=== PATIENT | male | born 1985 | race Caucasian/White ===

== ENCOUNTER 2019-06-18 17:50 | Emergency (ER) | payer BC ==
[~2019-06-18] VITALS: Ht 167 cm; Wt 119.0 kg
[2019-06-18] MEDS ORDERED: ESCI5TAB12 (18:39)
[2019-06-18] MEDS ORDERED: ONDA4TAB10 (18:39)
[2019-06-18 19:16] LABS: BASOPHILS % (AUTO) 0 % (0-10); EOSINOPHILS # (AUTO) 0.1 10^3/uL (0.0-0.3); EOSINOPHILS % (AUTO) 1 % (0-10); HEMATOCRIT 42 % (40-54); HEMOGLOBIN 15.2 G/DL (13.3-17.7); LYMPHOCYTES # (AUTO) 1.7 X 10^3 (1.0-4.0); LYMPHOCYTES % (AUTO) 32 % (12-44); MEAN CORPUSCULAR HEMOGLOBIN 33 PG (25-34); MEAN CORPUSCULAR HGB CONC 36 G/DL (32-36); MEAN CORPUSCULAR VOLUME 91 FL (80-99); MEAN PLATELET VOLUME 9.6 FL (7.4-10.4); MONOCYTES # (AUTO) 0.7 X 10^3 (0.0-1.0); MONOCYTES % (AUTO) 14 % (0-12); NEUTROPHILS # (AUTO) 2.9 X 10^3 (1.8-7.8); NEUTROPHILS % (AUTO) 53 % (42-75); PLATELET COUNT 310 10^3/uL (130-400); WHITE BLOOD COUNT 5.4 10^3/uL (4.3-11.0)
[2019-06-18 19:32] LABS: ALANINE AMINOTRANSFERASE 101 U/L (0-55); ALBUMIN 4.7 GM/DL (3.2-4.5); ALKALINE PHOSPHATASE 55 U/L (40-136); AMYLASE 51 U/L (25-125); BILIRUBIN,TOTAL 0.9 MG/DL (0.1-1.0); CALCIUM 9.4 MG/DL (8.5-10.1); CARBON DIOXIDE 23 MMOL/L (21-32); CHLORIDE 103 MMOL/L (98-107); GLUCOSE 95 MG/DL (70-105); POTASSIUM 3.3 MMOL/L (3.6-5.0); SODIUM 141 MMOL/L (135-145); TOTAL PROTEIN 7.8 GM/DL (6.4-8.2)
[2019-06-18] MEDS ORDERED: CATHETER FLUSH 10 ML SYR IV PRN (19:45)
[2019-06-18] MEDS ORDERED: IOHEXOL 350 MG/ML 100 ML (OMNIPAQUE 350) VIAL IV ONE (19:45)
[2019-06-18] MEDS ORDERED: NS 100 ML (IVPB) BAG IV ONE (19:45)
[2019-06-18] MEDS ORDERED: HOLD METFORMIN - RECEIVED CONTRAST 20 ML VIAL IV SCH (19:45)
--- NOTE | 2019-06-18 19:48 | Diagnostic Imaging Report ---
PROCEDURE: CT abdomen and pelvis with contrast. TECHNIQUE: Multiple contiguous axial images were obtained through the abdomen and pelvis after administration of intravenous contrast. Auto Exposure Controls were utilized during the CT exam to meet ALARA standards for radiation dose reduction. INDICATION: Epigastric pain, vomiting and diarrhea. FINDINGS: Lung bases are clear. Heart is unremarkable. Gallbladder is present. Pancreas appears normal. Spleen is not enlarged. Kidneys and adrenals appear normal. Small bowel is not dilated. Colon is unremarkable. There is no intraperitoneal free air or free fluid. Urinary bladder and prostate appear normal. IMPRESSION: No acute abnormality is seen in the abdomen or pelvis. Dictated by: Dictated on workstation # [id number]
[2019-06-18] MEDS ORDERED: DEXAMETHASONE 10 MG/ML (DECADRON) 1 ML VIAL IM ONE (20:00)
[2019-06-18 20:03] LABS: BILIRUBIN,URINE NEGATIVE (NEGATIVE); CLARITY,URINE CLEAR; COLOR,URINE YELLOW; GLUCOSE, URINE (UA) NEGATIVE (NEGATIVE); KETONES,URINE 1+ (NEGATIVE); LEUKOCYTE ESTERASE ,URINE NEGATIVE (NEGATIVE); NITRITE,URINE NEGATIVE (NEGATIVE); PROTEIN,URINE NEGATIVE (NEGATIVE)
[2019-06-18 20:17] LABS: BACTERIA,URINE NEGATIVE /HPF; RBC,URINE RARE /HPF
[2019-06-18 20:30] LABS: BUN/CREATININE RATIO 9; GFR ESTIMATED > 60; LIPASE 22 U/L (8-78)
[2019-06-18] MEDS ORDERED: NS IV 1000 ML 1,000 ML IV SCH (20:30)
[2019-06-18] MEDS ORDERED: AZIT250T12 PO (20:34)
--- NOTE | 2019-06-18 20:34 | ED EENT ---
History of Present Illness General Chief Complaint: Oral/Throat Problems Stated Complaint: MED COMPLICATION, THROAT TIGHT, HARD TO SWOLLOW Nursing Triage Note: pt presents to ed with complaints of throat discomfort and swelling starting today. Source: patient Exam Limitations: no limitations History of Present Illness Date Seen by Provider: Jun 18, 2019 Time Seen by Provider: 18:50 Initial Comments 33 year old male who presents to the ER with complaints of throat pain and swelling that started today. He reports that he was treated last week with a Z-p ak due to strep and it improved but started hurting today. He reports that he has also had RUQ abdominal pain for awhile and has started work up for possible gallbladder with Dr. Robert office but had worsening pain today. Denies fevers, nausea, vomiting, diarrhea. Timing/Duration: this morning Location: throat Associated Symptoms: sore throat Allergies and Home Medications Allergies Coded Allergies: amoxicillin (Verified Allergy, Unknown, 06/18/19) Home Medications Clindamycin HCl 300 Mg Capsule, 300 MG PO Q8H Prescribed by: DIANNE ZAPATA on 06/18/192048 Patient Home Medication List Home Medication List Reviewed: Yes Review of Systems Review of Systems Constitutional: see HPI; No chills, No fever Throat: see HPI, pain, painful swallowing Gastrointestinal: RUQ, see HPI All Other Systems Reviewed Negative Unless Noted: Yes Past Snmpogx-Drllsx-Pwdnnb Hx Past Med/Social Hx: Reviewed Nursing Past Med/Soc Hx Patient Social History Alcohol Use: Occasionally Uses Recreational Drug Use: No Smoking Status: Never a Smoker Recent Foreign Travel: No Contact w/Someone Who Travel: No Recent Infectious Disease Expo: No Recent Hopitalizations: No Physical Abuse: No Sexual Abuse: No Mistreated: No Fear: No Seasonal Allergies Seasonal Allergies: No Past Medical History Surgeries: No Respiratory: No Cardiac: No Neurological: No Genitourinary: No Gastrointestinal: No Musculoskeletal: No Endocrine: No Cancer: No Psychosocial: Yes Anxiety Integumentary: No Blood Disorders: No Adverse Reaction/Blood Tranf: No Family Medical History Reviewed Nursing Family Hx Physical Exam Vital Signs Vital Signs - First Documented 06/18/19 18:32 Temp 36.9 Pulse 79 Resp 16 B/P (MAP) 149/93 (111) Pulse Ox 98 Height, Weight, BMI Height: '" Weight: lbs. oz. kg; 42.00 BMI Method: General Appearance: WD/WN, no apparent distress Ears: bilateral ear auricle normal, bilateral ear TM normal Mouth/Throat: tongue swollen, tonsillar exudate, other (pharyngeal erythema) Cardiovascular: normal peripheral pulses, regular rate, rhythm, no edema, no gallop, no JVD, no murmur Respiratory: chest non-tender, lungs clear, normal breath sounds, no respiratory distress, no accessory muscle use Gastrointestinal: normal bowel sounds, soft, no organomegaly, no pulsatile mass, tenderness (minimal right upper quadrant tenderness. ) Neurologic/Psychiatric: alert, normal mood/affect, oriented x 3 Skin: normal color, warm/dry Progress/Results/Core Measures Results/Orders Lab Results My Orders Medications Given in ED Vital Signs/I&O Blood Pressure Mean: 111 POS Progress Progress Note : Time: 20:32 Progress Note I have seen and evaluated the patient. I have informed him of his laboratory findings and imaging studies. He agrees with plan of care, plans for discharge, return precautions were given. Departure Impression Primary Impression: Streptococcal tonsillitis Additional Impression: Right upper quadrant abdominal pain Disposition: 01 HOME, SELF-CARE Condition: Stable/Unchanged Departure-Patient Inst. Decision time for Depature: 20:32 Referrals: BRISEYDA WILKERSON MD (PCP/Family) Primary Care Physician Patient Instructions: Acute Abdomen (Belly Pain), Adult (DC), Strep Throat (DC) Add. Discharge Instructions: Take medication as directed. You may use Tylenol and Motrin as needed for pain relief. Follow-up with Dr. Wilkerson's office to further evaluate the function of your gallbladder. Return back to the emergency room for worsening symptoms or concerns as needed. All discharge instructions reviewed with patient and/or family. Voiced understanding. Scripts Clindamycin HCl (Clindamycin HCl) 300 Mg Capsule 300 MG PO Q8H for 7 Days, #21 CAP Prov: DIANNE ZAPATA 06/18/19 DIANNE ZAPATA Jun 18, 2019 20:34 POS
[2019-06-18] MEDS ORDERED: CLIN300C11 PO (20:49)
[2019-06-18 20:59] VITALS: BP 149/93
[2019-06-18] MEDS ORDERED: CLINDAMYCIN 150 MG (CLEOCIN) CAP PO ONE (21:00)
[2019-06-19] MEDS ORDERED: AZITHROMYCIN 250 MG TAB (ZITHROMAX) PO SCH (09:00)
--- OUTSIDE RECORDS SUMMARY | 2019-07-15 01:05 | XMS REPORT | Continuity of Care Document ---
Demographics Preferred Language Unknown Marital Status Unknown Druze Affiliation Unknown Race Unknown Ethnic Group Unknown Author Organization Unknown Address Unknown Phone Unavailable Allergies Active Description Code Type Severity Reaction Onset Reported/Identified Relationship to Patient Clinical Status Yes amoxicillin [id number] Drug Aller gy Unknown N/A 06/18/2019 Medications There is no data. Problems Date Dx Coded Attending Type Code Diagnosis Diagnosed By 06/18/2019 DIANNE ZAPATA Ot F41.9 ANXIETY DISORDER, UNSPECIFIED 06/18/2019 BERNLOY CANTUIS Ot J03.00 ACUTE STREPTOCOCCAL TONSILLITIS, UNSPECI 06/18/2019 LOY ZAPATAIS Ot R10.11 RIGHT UPPER QUADRANT PAIN 06/18/2019 LOY ZAPATAIS Ot Z88.0 ALLERGY STATUS TO PENICILLIN 06/24/2019 MELANY ALMAZAN LABELING STRATEGIST Ot K76.0 FATTY (CHANGE OF) LIVER, NOT ELSEWHERE C 06/24/2019 MELANY ALMAZAN LABELING STRATEGIST Ot R19.7 DIARRHEA, UNSPECIFIED 06/25/2019 DIANNE ZAPATA Ot F41.9 ANXIETY DISORDER, UNSPECIFIED 06/25/2019 BERNPEPE, DIANNE Ot J03.00 ACUTE STREPTOCOCCAL TONSILLITIS, UNSPECI 06/25/2019 DIANNE ZAPATA Ot R10.11 RIGHT UPPER QUADRANT PAIN 06/25/2019 LOY ZAPATAIS Ot Z88.0 ALLERGY STATUS TO PENICILLIN 07/10/2019 MELANY ALMAZAN LABELING STRATEGIST Ot K21.9 GASTRO-ESOPHAGEAL REFLUX DISEASE WITHOUT Procedures There is no data. Results Test Result Range Streptococcus pyogenes antigen detection - 06/18/19 19:00 Streptococcus pyogenes antigen detection NEGATIVE NEGATIVE Bacterial throat culture - 06/18/19 19:0 0 Bacterial throat culture NBS NR Complete blood count (CBC) with automate d white blood cell (WBC) differential - 06/18/19 19:07 Blood leukocytes automated count (number/volume) 5.4 10*3/uL 4.3-11.0 Blood erythrocytes automated count (number/volume) 4.65 10*6/uL 4.35-5.85 Venous blood hemoglobin measurement (mass/volume) 15.2 g/dL 13.3-17.7 Blood hematocrit (volume fraction) 42 % 40-54 Automated erythrocyte mean corpuscular volume 91 [ foz_us] 80-99 Automated erythrocyte mean corpuscular h emoglobin (mass per erythrocyte) 33 pg 25-34 Automated erythrocyte mean corpuscular h emoglobin concentration measurement (mass/volume) 36 g/dL 32-36 Automated erythrocyte distribution width ratio 12. 0 % 10.0- 14.5 Automated blood platelet count (count/volume) 310 10*3/uL 130-400 Automated blood platelet mean volume measurement 9.6 [foz_us] 7.4-10.4 Automated blood neutrophils/100 leukocytes 53 % 42-75 Automated blood lymphocytes/100 leukocytes 32 % 12-44 Blood monocytes/100 leukocytes 14 % 0-12 Automated blood eosinophils/100 leukocytes 1 % 0-10 Automated blood basophils/100 leukocytes 0 % 0-10 Blood neutrophils automated count (number/volume) 2.9 10*3 1.8-7.8 Blood lymphocytes automated count (number/volume) 1.7 10*3 1.0-4.0 Blood monocytes automated count (number/volume) 0. 7 10*3 0.0-1.0 Automated eosinophil count 0.1 10*3/uL 0 .0-0.3 Automated blood basophil count (count/volume) 0.0 10*3/uL 0.0-0.1 Comprehensive metabolic panel - 06/18/19 19:07 Serum or plasma sodium measurement (moles/volume) 141 mmol/L 135-145 Serum or plasma potassium measurement (moles/volume) 3.3 mmol/L 3.6-5.0 Serum or plasma chloride measurement (moles/volume) 103 mmol/L 98-107 Carbon dioxide 23 mmol/L 21-32 Serum or plasma anion gap determination (moles/volume) 15 mmol/L 5-14 Serum or plasma urea nitrogen measurement (mass/volume ) 9 mg/dL 7-18 Serum or plasma creatinine measurement (mass/volume) 1.00 mg/dL 0.60-1.30 Serum or plasma urea nitrogen/creatinine mass ratio 9 NRG Serum or plasma creatinine measurement w ith calculation of estimated glomerular filtration rate > NRG Serum or plasma glucose measurement (mass/volume) 95 mg/dL 70-105 Serum or plasma calcium measurement (mass/volume) 9.4 mg/dL 8.5-10.1 Serum or plasma total bilirubin measurement (mass/volu me) 0.9 mg/dL 0.1-1.0 Serum or plasma alkaline phosphatase zohreh surement (enzymatic activity/volume) 55 U/L 40-136 Serum or plasma aspartate aminotransfera se measurement (enzymatic activity/volume) 43 U/L 5-34 Serum or plasma alanine aminotransferase measurement (enzymatic activity/volume) 101 U/L 0-55 Serum or plasma protein measurement (mass/volume) 7.8 g/dL 6.4-8.2 Serum or plasma albumin measurement (mass/volume) 4.7 g/dL 3.2-4.5 Serum or plasma amylase measurement (enz ymatic activity/volume) - 06/18/19 19:07 Serum or plasma amylase measurement (enzymatic activit y/volume) 51 U/L 25-125 Lipase - 06/18/19 19:07 Lipase 22 U/L 8-78 Complete urinalysis with reflex to cultu re - 06/18/19 19:50 Urine color determination YELLOW NRG Urine clarity determination CLEAR NR G Urine pH measurement by test strip 6.0 5-9 Specific gravity of urine by test strip 1.010 1.016-1.022 Urine protein assay by test strip, semi-quantitative NEGATIVE NEGATIVE Urine glucose detection by automated test strip NE GATIVE NEGATIVE Erythrocytes detection in urine sediment by light micr oscopy TRACE-I NEGATIVE Urine ketones detection by automated test strip 1+ NEGATIVE Urine nitrite detection by test strip NEGATIVE NEGATIVE Urine total bilirubin detection by test strip NEGA TIVE NEGATIVE Urine urobilinogen measurement by automated test strip (mass/volume) 0.2 mg/dL < = 1.0 Urine leukocyte esterase detection by dipstick NEG ATIVE NEGATIVE Automated urine sediment erythrocyte cou nt by microscopy (number/high power field) RARE NRG Automated urine sediment leukocyte count by microscopy (number/high power field) NONE NRG Bacteria detection in urine sediment by light microsco py NEGATIVE NRG Crystals detection in urine sediment by light microsco py NONE NRG Casts detection in urine sediment by light microscopy NONE NRG Mucus detection in urine sediment by light microscopy NEGATIVE NRG Complete urinalysis with reflex to culture NO NRG OCCULT BLOOD STOOL - 07/09/19 15:00 Stool gastrointestinal hemoglobin detection NEGATI VE NEGATIVE C DIFFICILE AG + TOXIN A/B. - 07/09/19 1 5:00 RESULTS NEGATIVE FOR ANTIGEN AND TOXIN A/B NRG [id number] - 07/09/19 15:00 Stool bacteria identification by culture - 07/09/19 15:00 Stool bacteria identification by culture N2 NRG Encounters ACCT No. Visit Date/Time Discharge Status Pt. Type Provider Facility Loc./Unit Complaint [id number] 06/16/2019 15:50:20 06/16/2019 23:59:5 9 CLS Outpatient [id number] 07/09/2019 15:35:00 23:59:59 CLS Outpatient MAURICIO SHARP APRN [facility] LAB DIARRHEA [id number] 07/09/2019 09:37:00 23:59:59 CLS Outpatient MELANY ALMAZAN [facility] CARD RUQ PAIN [id number] 06/22/2019 06:49:00 23:59:59 CLS Outpatient MELANY ALMAZAN [facility] RAD ABD PAIN,DIARRH EA [id number] 06/18/2019 17:53:00 21:01:00 DIS Emergency DIANNE ZAPATA [facility] ER MED COMPLICATION, THROA T TIGHT, HARD TO SWOLLOW
[2019-07-16] MEDS ORDERED: OMEP-280 PO (11:33)
== END 2019-06-18 21:01 | disposition home or self-care (01) ==
LOC: EDUNIT# 17:50 → ER 17:53
DX: J03.00 Acute streptococcal tonsillitis, unspecified (principal); R10.11 Right upper quadrant pain; F41.9 Anxiety disorder, unspecified; Z88.0 Allergy status to penicillin
CPT/HCPCS: 36415; 74177; 80053; 81000; 82150; 83690; 85025; 87430; 96374

== ENCOUNTER → 2019-06-22 | Outpatient (CLI) | payer BC ==
[~2019-06-22] MED LIST: ACHD5005 PO; AZIT250T12 PO; CLIN300C11 PO; DOCU-143 PO; ESCI5TAB12; FAMO-119 PO; FLUC150T2 PO; NYST1000 PO; OMEP-280 PO; ONDA4TAB10; SUCR1TAB PO
--- NOTE | 2019-06-22 09:18 | Diagnostic Imaging Report ---
PROCEDURE: US Gallbladder. TECHNIQUE: Multiple real-time grayscale images were obtained over the right upper quadrant in various projections. INDICATION: Abdominal pain and diarrhea. FINDINGS: There is increased echogenicity throughout the liver indicating steatosis. Gallbladder has a normal appearance without evidence of intraluminal filling defect. Common bile duct and pancreas are largely obscured by overlying fatty liver and bowel. No right renal, abdominal aortic or inferior vena caval abnormality is identified and there is no evidence of ascites. IMPRESSION: Hepatic steatosis without acute abnormality seen in the right upper quadrant. Dictated by: Dictated on workstation # [id number]
== END ==
LOC: RAD 06:49
PROVIDERS: ATTEND Nurse Practitioner Family
DX: K76.0 Fatty (change of) liver, not elsewhere classified (principal); R19.7 Diarrhea, unspecified
CPT/HCPCS: 76705

== ENCOUNTER 2019-07-09 15:35 | Outpatient (RCR) | payer BC ==
[~2019-07-09 15:35] MED LIST changes: -CATHETER FLUSH 10 ML SYR IV PRN; +ONDA-105; -ONDA4TAB10
[2019-07-16] MEDS ORDERED: FLUC150T2 PO (11:33)
[2019-07-16] MEDS ORDERED: SUCR1TAB PO (11:33)
[2019-07-16] MEDS ORDERED: FAMO-119 PO (11:33)
[2019-07-16] MEDS ORDERED: OMEP20CA18 PO (11:33)
[2019-07-16] MEDS ORDERED: NYST1000 PO (11:33)
[2019-07-24] MEDS ORDERED: DOCU-143 PO (10:24)
[2019-07-24] MEDS ORDERED: ACHD5005 PO (10:24)
[2019-08-26] MEDS ORDERED: PANT40TA2 PO (13:37)
[2019-09-01] MEDS ORDERED: SUCR1TAB36 PO (14:42)
== END 2019-10-07 | disposition home or self-care (01) ==
LOC: LAB 15:35
PROVIDERS: ATTEND Nurse Practitioner Family
DX: R19.7 Diarrhea, unspecified (principal)
CPT/HCPCS: 82274; 87015; 87045; 87046; 87324; 87328; 87329; 87449; 87899

== ENCOUNTER → 2019-07-09 | Outpatient (CLI) | payer BC ==
[~2019-07-09] MED LIST changes: -ACHD5005 PO; +CATHETER FLUSH 10 ML SYR IV PRN; -DOCU-143 PO; -FAMO-119 PO; -FLUC150T2 PO; -NYST1000 PO; -OMEP-280 PO; -SUCR1TAB PO
--- NOTE | 2019-07-09 13:41 | Diagnostic Imaging Report ---
INDICATION: Right upper quadrant pain. TECHNIQUE: Patient was given 5.3 mCi technetium 99m Choletec intravenously and imaging over the abdomen was performed. At 30 minutes, patient ingested 8 ounces of Ensure and a gallbladder ejection fraction was calculated. FINDINGS: There is homogeneous uptake of activity by the liver. Prompt excretion of activity into the common duct and gallbladder is noted. There is normal passage of activity into the small bowel. There is also activity extending into the stomach, consistent with bile reflux. Gallbladder ejection fraction is abnormally low at 12%. Normal values are 33% or greater. IMPRESSION: 1. Patent cystic duct and common bile duct. 2. Abnormally low gallbladder ejection fraction of 12%. 3. Bile reflux into the stomach. Dictated by: Dictated on workstation # [id number]
== END ==
LOC: CARD 09:37
PROVIDERS: ATTEND Nurse Practitioner Family
DX: K21.9 Gastro-esophageal reflux disease without esophagitis (principal)
CPT/HCPCS: 78227

== ENCOUNTER 2019-07-16 05:34 | Outpatient (CLI) | payer BC ==
[~2019-07-16] VITALS: Ht 167.7 cm; Wt 110.9 kg
[~2019-07-16 05:34] MED LIST changes: -ONDA-105; +ONDA4TAB10
[2019-07-16] MEDS ORDERED: SUCR1TAB PO (11:33)
[2019-07-16] MEDS ORDERED: FLUC150T2 PO (11:33)
[2019-07-16] MEDS ORDERED: NYST1000 PO (11:33)
[2019-07-16] MEDS ORDERED: FAMO-119 PO (11:33)
[2019-07-16] MEDS ORDERED: OMEP20CA13 PO (11:33)
== END 2019-07-16 11:46 | disposition home or self-care (01) ==
LOC: PREOP 05:34
PROVIDERS: ATTEND Surgery
DX: Z01.818 Encounter for other preprocedural examination (principal)

== ENCOUNTER 2019-07-24 07:20 | Day surgery (SDC) | payer BC ==
[~2019-07-24] VITALS: Ht 66 cm; Wt 110.9 kg
[2019-07-24] VITALS (11 sets, daily range): BP systolic 113–166; BP diastolic 56–108
[~2019-07-24 07:20] MED LIST changes: +FAMO-119 PO; +FLUC150T2 PO; +NYST1000 PO; +OMEP-280 PO; +SUCR1TAB PO
[2019-07-24] MEDS ORDERED: LACTATED RINGERS 1,000 ML IV PRN (08:00)
[2019-07-24] MEDS ORDERED: ceFAZolin 2 GM/50 ML NS 50 ML IV ONE (08:00)
[2019-07-24] MEDS: LACTATED RINGERS 1,000 ML IV PRN ×2 (08:22→09:55)
--- NOTE | 2019-07-24 08:25 | Progress Note-Pre Operative ---
Pre-Operative Progress Note H&P Reviewed The H&P was reviewed, patient examined and no changes noted. Date Seen by Provider: Jul 24, 2019 Time Seen by Provider: 08:23 Date H&P Reviewed: Jul 24, 2019 Time H&P Reviewed: 08:23 Pre-Operative Diagnosis: epigastric abd pain, biliary dyskinesia MIKE ROBERTS DO Jul 24, 2019 08:25
[2019-07-24] MEDS ORDERED: BUP/EPI 0.5% 1:200,000 (SENSORCAINE) 30 ML VIAL ONE (08:27)
[2019-07-24] MEDS ORDERED: IOPAMIDOL 61% 30 ML (ISOVUE 300) VIAL IV ONE (08:28)
[2019-07-24] MEDS ORDERED: MIDAZOLAM 2 MG/2 ML (VERSED) VIAL ONE ×2 (08:33→09:00)
[2019-07-24] MEDS ORDERED: MIDAZOLAM 2 MG/2 ML (VERSED) VIAL IVP ONE (08:45)
[2019-07-24] MEDS ORDERED: fentaNYL INJECTION 100 MCG/2 ML AMP ONE (08:59)
[2019-07-24] MEDS ORDERED: SUCCINYLCHOLINE INJ 100 MG/5 ML SYR ONE (09:47)
[2019-07-24] MEDS ORDERED: SEVOFLURANE (ULTANE) 15 ML INHAL SOLN ONE ×6 (09:47→10:29)
[2019-07-24] MEDS ORDERED: LIDOCAINE PF 2% 5 ML (XYLOCAINE) VIAL ONE (09:47)
[2019-07-24] MEDS ORDERED: proPOfol 200 MG/20 ML (DIPRIVAN) VIAL IV ONE (09:47)
[2019-07-24] MEDS ORDERED: ONDANSETRON 4 MG/2 ML (SDV) Z0FRAN ONE (09:47)
[2019-07-24] MEDS ORDERED: ROCURONIUM 10 MG/ML 5 ML SYRINGE IV ONE (09:47)
[2019-07-24] MEDS ORDERED: morphine INJ 10 MG/ML 1ML (SYR OR VIAL) ONE (09:48)
[2019-07-24] MEDS ORDERED: GLYCOPYRROLATE 0.2 MG/ML (ROBINUL) 2 ML VIAL ONE (10:11)
[2019-07-24] MEDS ORDERED: ACHD5005 PO (10:24)
[2019-07-24] MEDS ORDERED: DOCU-143 PO (10:24)
--- NOTE | 2019-07-24 10:25 | Discharge Inst-Simple/Standard ---
Discharge Inst-Standard Discharge Medications New, Converted or Re-Newed RX: RX on Chart Patient Instructions/Follow Up Plan of Care/Instructions/FU: 2 weeks Shalonda Activity as Tolerated: No Discharge Diet: Regular Diet Other Inst to Patient Follow up Appt: Make appointment for 2 weeks. Instructions: No lifting greater than 10 pounds. No strenuous activity. May shower in 24 hours, no tub bath or soaking. Use incentive spirometer at home as directed. No Smoking Skin/Wound Care: You have special glue over incisions it will fall off on its own. Symptoms to Report: Appetite Changes, Extremity Discoloration, Numbness/Tingling, Swelling Increased, Bleeding Excessive, Eyesight Changes, Pain Increased, Urine Color Change, Constipation(Persistent), Fever over 101 degree F, Pain/Pressure in chest, Urinating Difficulty, Cough Up/Vomit Blood, Heart Beat Irreg/Pounding, Pain/Pressure in jaw, Vaginal Bleeding Increase, Cramps in feet or legs, Lightheadedness, Pain/Pressure in shoulder, Diarrhea(Persistent), Memory Changes Suddenly, Questions/Concerns, Weight gain consecutive days, Dizziness/Fainting, Nausea/Vomiting, Shortness of Breath, Weight gain over 2 pounds. If eyes or skin turn yellow notify physician. If questions or concerns contact your physician Or seek help at emergency department. MIKE ROBERTS DO Jul 24, 2019 10:25
[2019-07-24] MEDS ORDERED: HYDROmorphone 2 MG/ML VIAL (DILAUDID) ONE (10:33)
[2019-07-24] MEDS ORDERED: ONDANSETRON 4 MG/2 ML (SDV) Z0FRAN IVP PRN (10:45)
[2019-07-24] MEDS ORDERED: MEPERIDINE (DEMEROL) INJ 50 MG/ML IVP ONE (10:45)
[2019-07-24] MEDS ORDERED: morphine INJ 10 MG/ML 1ML (SYR OR VIAL) IVP ONE (10:45)
[2019-07-24] MEDS ORDERED: HYDROmorphone 2 MG/ML VIAL (DILAUDID) IV ONE (10:45)
[2019-07-24] MEDS ORDERED: fentaNYL INJECTION 100 MCG/2 ML AMP IVP ONE (10:45)
--- NOTE | 2019-07-24 11:10 | Diagnostic Imaging Report ---
INDICATION: Fluoroscopy during intraoperative cholangiogram. Patient has biliary dyskinesia. Fluoroscopy was provided in the OR during intraoperative cholangiogram. 7 seconds of fluoroscopic time was utilized. Images demonstrate contrast being injected via the cystic duct remnant. Intrahepatic and extrahepatic bile ducts are normal caliber. No filling defects are seen to suggest retained stone. There is contrast flowing into the duodenum. IMPRESSION: Fluoroscopy during intraoperative cholangiogram. Dictated by: Dictated on workstation # [id number]
[2019-07-24] MEDS ORDERED: HYDROcodone/APAP 5 MG/325 MG (LORTAB) TAB ONE (11:57)
[2019-07-24] MEDS ORDERED: HYDROcodone/APAP 5 MG/325 MG (LORTAB) TAB PO ONE (12:00)
--- NOTE | 2019-07-24 13:18 | Anesthesia-General Post-Op ---
General Patient Condition Mental Status/LOC: Same as Preop Cardiovascular: Satisfactory Nausea/Vomiting: Absent Respiratory: Satisfactory Pain: Controlled Complications: Absent Post Op Complications Complications None Follow Up Care/Instructions Patient Instructions None needed. Anesthesia/Patient Condition Patient Condition Patient is doing well, no complaints, stable vital signs, no apparent adverse anesthesia problems. No complications reported per nursing. JUAN QUIROGA CRNA Jul 24, 2019 13:18
--- NOTE | 2019-07-24 14:53 | OPERATIVE REPORT ---
DATE OF SERVICE: 07/24/2019 PREOPERATIVE DIAGNOSES: Biliary dyskinesia, epigastric abdominal pain. POSTOPERATIVE DIAGNOSES: Biliary dyskinesia, epigastric abdominal pain. PROCEDURE PERFORMED: Laparoscopic cholecystectomy with intraoperative cholangiogram. SURGEON: Mike Liz DO SEWER LINE PHOTO INSPECTOR: Dr. Garcia, assisted in retraction, dissection and closure. ANESTHESIA: General. ESTIMATED BLOOD LOSS: Minimal. COMPLICATIONS: None. INDICATIONS: The patient is a 33-year-old male with epigastric abdominal pain, biliary dyskinesia consistent with HIDA scan. He understands risks and benefits of procedure and wished to proceed with procedure. Consent was signed in the chart. DESCRIPTION OF PROCEDURE: The patient was taken to the operating suite, prepped and draped in sterile fashion. Timeout was performed. A midline incision just above the umbilicus was made for 12 mm trocar site. The cautery was used to dissect down to the fascia, which was then scored, grasped and elevated. The abdomen was then entered. An 0 Vicryl was placed in the [id number] fashion for closure at the end of the case. The balloon was then inserted and pneumoperitoneum was achieved. Under direct visualization of the laparoscope, a 5 mm trocar was placed in subxiphoid region and two 5 mm trocars were placed in the right upper quadrant. Gallbladder was grasped, elevated. The cystic duct and cystic artery were then dissected out. Clips were placed on the proximal and distal portion of the cystic artery and the distal portion of the cystic duct. The duct was then partially transected. Arrow catheter was inserted and cholangiogram was performed. There were no filling defects. Contrast made its way into the duodenum without difficulty. Catheter was then removed. Clips were placed on the proximal portion of the cystic duct and the duct and the artery were then transected. Hook cautery was used to dissect the gallbladder from the gallbladder fossa achieving hemostasis. Once removed, it was placed in an Endobag and removed through the 12 mm trocar site. Abdomen was irrigated with copious amounts of irrigation and suction. The abdomen was then desufflated, the trocars were removed. The 0 Vicryl that was placed earlier was then tied closing the fascial defect. The skin was then closed using 4-0 Monocryl in a subcuticular fashion. The abdomen was washed and dried and Skin Affix was placed over the incisions. The patient tolerated procedure well without any complications. He was taken to the recovery room in stable condition. Job ID: [id number] DocumentID: [id number] Dictated Date: 07/24/2019 10:31:39 Store Detective Date: 07/24/2019 14:52:24 Dictated By: MIKE LIZ DO
== END 2019-07-24 12:35 | disposition home or self-care (01) ==
LOC: SDC 07:20
PROVIDERS: ATTEND Surgery
DX: K81.1 Chronic cholecystitis (principal); K82.8 Other specified diseases of gallbladder; K21.9 Gastro-esophageal reflux disease without esophagitis; F41.9 Anxiety disorder, unspecified; G47.33 Obstructive sleep apnea (adult) (pediatric); Z11.2 Encounter for screening for other bacterial diseases; Z88.1 Allergy status to other antibiotic agents; Z87.891 Personal history of nicotine dependence
CPT/HCPCS: 87081

== ENCOUNTER 2019-08-26 13:40 | Outpatient (CLI) | payer BC ==
[~2019-08-26] VITALS: Ht 167 cm; Wt 109.0 kg
[~2019-08-26 13:40] MED LIST changes: +ACHD5005 PO; +DOCU-143 PO; +PANT40TA2 PO
== END 2019-08-26 13:46 | disposition home or self-care (01) ==
LOC: PREOP 13:40
PROVIDERS: ATTEND Surgery
DX: Z01.818 Encounter for other preprocedural examination (principal)

== ENCOUNTER 2020-10-10 09:56 | Emergency (ER) | payer BC ==
[~2020-10-10] VITALS: Ht 167 cm; Wt 115.0 kg
[~2020-10-10 09:56] MED LIST changes: -CLIN300C11 PO; +CLIN300C12 PO; -ESCI5TAB12; +ESCI5TAB16; -OMEP-280 PO; +OMEP20CA18 PO; +ONDA-105; -ONDA4TAB10; +SUCR1TAB36 PO
--- NOTE | 2020-10-10 11:28 | ED Respiratory ---
General Chief Complaint: Respiratory Problems Stated Complaint: SOA Nursing Triage Note: pt presents to ed from work with complaints an episode of soa while at work. pt states he has had episodes on and off since he had covid in May. Source: patient Exam Limitations: no limitations History of Present Illness Date Seen by Provider: Oct 10, 2020 Time Seen by Provider: 11:00 Initial Comments Patient is a 34-year-old male who presents to the emergency department today with a chief complaint of an episode of shortness of breath, his face going numb, abdominal cramping. 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 Patient states that he felt extremely flushed when the symptoms were occurring. He states the more he thought about it the more flushed and short of breath that he became. Patient states he has had repeated episodes like this over the course of the past couple of months. He is seeing a GI specialist and looking into having some issue with "bacterial overgrowth" in his gut. He also recently did a by mail food tolerance test that he is waiting for results on. Patient states that he had Covid in May 2020 and then was subsequently vaccinated with his first vaccine at the beginning of September. Patient denies any chronic medical conditions. He does not smoke. He is currently asymptomatic and all his symptoms have completely resolved. All other review of systems reviewed and negative except as stated Allergies and Home Medications Allergies Coded Allergies: amoxicillin (Verified Allergy, Unknown, has rec Rocephin w/o issue, 08/26/19) Home Medications Pantoprazole Sodium 40 Mg Tablet.dr, 40 MG PO DAILY, (Reported) Sucralfate 1 Gm Tablet, 1 GM PO QID Prescribed by: MIKE ROBERTS on 09/01/19 1442 Patient Home Medication List Home Medication List Reviewed: Yes Review of Systems Review of Systems Constitutional: no symptoms reported EENTM: other ("My tongue felt thick") Respiratory: No dyspnea on exertion; short of breath (while driving) Cardiovascular: No chest pain, No palpitations Gastrointestinal: no symptoms reported Genitourinary: no symptoms reported Musculoskeletal: no symptoms reported Skin: no symptoms reported Psychiatric/Neurological: Anxiety All Other Systems Reviewed Negative Unless Noted: Yes Past Urzikbw-Hruyyr-Qmzblx Hx Patient Social History Alcohol Use: Occasionally Uses Number of Drinks Today: AA Alcohol Beverage of Choice: Beer Smoking Status: Never a Smoker 2nd Hand Smoke Exposure: No Recent Infectious Disease Expo: No Recent Hopitalizations: No Immunizations Up To Date Date of Influenza Vaccine: Mar 15, 2017 Seasonal Allergies Seasonal Allergies: No Past Medical History Surgeries: No (wisdom teeth) Gallbladder Respiratory: Yes Sleep Apnea Currently Using CPAP: Yes Cardiac: No Neurological: No Genitourinary: No Gastrointestinal: Yes Gastroesophageal Reflux, Gall Bladder Disease Musculoskeletal: No Endocrine: No HEENT: Yes (GLASSES) Loss of Vision: Denies Hearing Impairment: Denies Cancer: No Psychosocial: Yes Anxiety Integumentary: No Blood Disorders: No Adverse Reaction/Blood Tranf: No (N/A) Physical Exam Vital Signs - First Documented 10/10/20 10:15 Temp 36.6 Pulse 97 Resp 18 B/P (MAP) 147/100 (116) Pulse Ox 99 Capillary Refill : Less Than 3 Seconds Height: '" Weight: lbs. oz. kg; 41.00 BMI Method: General Appearance: WD/WN, no apparent distress Eyes: Bilateral Eye Normal Inspection, Bilateral Eye PERRL, Bilateral Eye EOMI HEENT: PERRL/EOMI Neck: full range of motion, supple Respiratory: lungs clear, normal breath sounds, no respiratory distress, no accessory muscle use Cardiovascular: regular rate, rhythm Gastrointestinal: normal bowel sounds, non tender, soft Extremities: non-tender, normal inspection, no pedal edema Neurologic/Psychiatric: no motor/sensory deficits, alert, normal mood/affect, oriented x 3 Skin: normal color, warm/dry Progress/Results/Core Measures Suspected Sepsis Recent Fever Within 48 Hours: No Infection Criteria Present: Suspected New Infection New/Unexplained Altered Menta: No Sepsis Screen: No Definite Risk SIRS Temperature: Pulse: 97 Respiratory Rate: 18 Blood Pressure 147 /100 Mean: 116 Results/Orders My Orders Orders - LOUISE SHORT MD Ekg Tracing (10/10/20 11:05) Vital Signs/I&O 10/10/20 10/10/20 10:15 11:33 Temp 36.6 Pulse 97 70 Resp 18 20 B/P (MAP) 147/100 (116) 132/84 Pulse Ox 99 98 Capillary Refill : Less Than 3 Seconds Blood Pressure Mean: 116 ECG Initial ECG Impression Date: Oct 10, 2020 Initial ECG Impression Time: 11:16 Initial ECG Rate: 89 Initial ECG Rhythm: Normal Sinus Initial ECG Intervals: Normal Initial ECG Impression: Normal Departure Impression Primary Impression: Shortness of breath Additional Impression: Panic attack Disposition: 01 HOME, SELF-CARE Condition: Stable Departure-Patient Inst. Decision time for Depature: 11:27 Referrals: BRISEYDA LUNA MD (PCP/Family) Primary Care Physician Patient Instructions: Anxiety, Adult ED Add. Discharge Instructions: Continue your follow-up with your primary care provider as well as Dr. Galindo. Return to the emergency room if you have a recurrence of symptoms that are persistent, worsening or for any other emergent concerns. Copy Copies To 1: BRISEYDA LUNA MD, KATHRYN M MD Oct 10, 2020 11:28
[2020-10-10 11:33] VITALS: BP 132/84
== END 2020-10-10 11:32 | disposition home or self-care (01) ==
LOC: EDUNIT# 09:56 → ER 09:58
DX: F41.0 Panic disorder [episodic paroxysmal anxiety] (principal); K21.9 Gastro-esophageal reflux disease without esophagitis; Z86.16 Personal history of COVID-19; Z88.1 Allergy status to other antibiotic agents
CPT/HCPCS: 93005